=== PATIENT | female | born 1945 | race Caucasian/White ===

== ENCOUNTER 2017-11-05 02:19 | Emergency (ER) | payer MEDICARE ==
[~2017-11-05] VITALS: Ht 160 cm; Wt 58.6 kg
[2017-11-05 02:28] VITALS: Ht 160 cm; Wt 58.6 kg
[2017-11-05] MEDS ORDERED: SEROQUEL25 MG PO (02:31)
[2017-11-05] MEDS ORDERED: MOBIC7.5 MG PO (02:31)
[2017-11-05 06:24] VITALS: BP 127/55
== END 2017-11-05 06:10 | disposition home or self-care (01) ==
LOC: D.ER 02:19 → EDBD 02:19 → D.ER 06:10
DX: S00.83XA Contusion of other part of head, initial encounter (principal); W06.XXXA Fall from bed, initial encounter; Y93.89 Activity, other specified; Y92.122 Bedroom in nursing home as the place of occurrence of the external cause; G30.9 Alzheimer's disease, unspecified; F02.80 Dementia in other diseases classified elsewhere, unspecified severity, without behavioral disturbance, psychotic disturbance, mood disturbance, and anxiety

== ENCOUNTER 2018-01-18 09:11 | Emergency (ER) | payer MEDICARE ==
[~2018-01-18] VITALS: Ht 160 cm; Wt 54.5 kg
[2018-01-18 09:11] VITALS: BP 112/60; Ht 160 cm; Wt 54.5 kg
[~2018-01-18 09:11] MED LIST: MOBIC7.5 MG PO; SEROQUEL25 MG PO
== END 2018-01-18 13:29 ==
LOC: D.ER 09:11
DX: G30.9 Alzheimer's disease, unspecified (principal); F02.81 Dementia in other diseases classified elsewhere, unspecified severity, with behavioral disturbance; Z91.83 Wandering in diseases classified elsewhere; W18.30XA Fall on same level, unspecified, initial encounter; Y93.89 Activity, other specified; Y92.129 Unspecified place in nursing home as the place of occurrence of the external cause

== ENCOUNTER 2018-11-28 09:57 | Emergency (ER) | payer MEDICARE ==
[~2018-11-28] VITALS: Ht 160 cm; Wt 65.9 kg
[2018-11-28 10:00] VITALS: Ht 160 cm; Wt 65.9 kg
[2018-11-28 14:05] VITALS: BP 110/60
== END 2018-11-28 14:10 ==
LOC: D.ER 09:57
DX: S01.01XA Laceration without foreign body of scalp, initial encounter (principal); W05.0XXA Fall from non-moving wheelchair, initial encounter; Y93.89 Activity, other specified; Y92.89 Other specified places as the place of occurrence of the external cause